=== PATIENT | female | born 1975 | race Caucasian/White ===

== ENCOUNTER → 2018-05-21 | Outpatient (CLI) | payer OTHER ==
[~2018-05-21] MED LIST: FLONASE 0.05%50 MCG; MAXALT MLT5 MG; MEDROLDOSEPACK PO; NORCO 5-325 TA1 EACH PO; OMEPRAZOLE MAGN20 MG; ROBAXIN 750 MG750 M1; ROBAXIN 750 MG750 M1 PO; XYZAL5 MG; ZANAFLEX4 MG PO; ZOFRAN ODT4 MG PO
== END ==
LOC: M.RAD 15:51
DX: M50.323 Other cervical disc degeneration at C6-C7 level (principal); M54.6 Pain in thoracic spine; M25.511 Pain in right shoulder; G89.29 Other chronic pain

== ENCOUNTER 2018-05-27 19:14 | Emergency (ER) | payer OTHER ==
[~2018-05-27] VITALS: Ht 182.9 cm; Wt 99.8 kg
[2018-05-27] MEDS ORDERED: ROBAXIN 750 MG750 M1 (19:22)
[2018-05-27] MEDS ORDERED: OMEPRAZOLE MAGN20 MG (19:22)
[2018-05-27] MEDS ORDERED: FLONASE 0.05%50 MCG (19:22)
[2018-05-27] MEDS ORDERED: MAXALT MLT5 MG (19:23)
[2018-05-27] MEDS ORDERED: XYZAL5 MG (19:23)
[2018-05-27] MEDS ORDERED: MEDROLDOSEPACK PO (19:50)
[2018-05-27] MEDS ORDERED: ROBAXIN 750 MG750 M1 PO (19:50)
[2018-05-27] MEDS ORDERED: NORCO 5-325 TA1 EACH PO (19:50)
[2018-05-27 20:17] VITALS: BP 122/83
== END 2018-05-27 20:18 | disposition home or self-care (01) ==
LOC: M.ERS 19:14
DX: S46.811A Strain of other muscles, fascia and tendons at shoulder and upper arm level, right arm, initial encounter (principal); X58.XXXA Exposure to other specified factors, initial encounter; Y93.89 Activity, other specified; Y92.89 Other specified places as the place of occurrence of the external cause; Y99.8 Other external cause status

== ENCOUNTER → 2018-06-06 | Outpatient (CLI) | payer OTHER | LOC: M.MRI 16:58 | DX: M47.22 Other spondylosis with radiculopathy, cervical region (principal); M50.123 Cervical disc disorder at C6-C7 level with radiculopathy; F10.99 Alcohol use, unspecified with unspecified alcohol-induced disorder ==

== ENCOUNTER 2018-09-17 10:57 | Emergency (ER) | payer OTHER ==
[~2018-09-17] VITALS: Ht 182.9 cm; Wt 104.3 kg
[~2018-09-17 10:57] MED LIST changes: -ZANAFLEX4 MG PO; -ZOFRAN ODT4 MG PO
[2018-09-17] MEDS ORDERED: ZANAFLEX4 MG PO (11:13)
[2018-09-17] MEDS ORDERED: ZOFRAN ODT4 MG PO (13:22)
[2018-09-17 13:32] VITALS: BP 127/77
== END 2018-09-17 13:33 | disposition home or self-care (01) ==
LOC: M.ERS 10:57
DX: R51 Headache (principal); R11.2 Nausea with vomiting, unspecified

== ENCOUNTER → 2019-06-24 | Outpatient (CLI) | payer OTHER ==
[~2019-06-24] MED LIST changes: +ZANAFLEX4 MG PO; +ZOFRAN ODT4 MG PO
--- NOTE | 2019-06-25 11:12 | 2DMMODE ---
[place] [address] 2 D/M-MODE ECHOCARDIOGRAM Name: THAD KAUR Room: [facility]#: [id number] Admission: 06/24/19 Attend Phys: Navneet Andersen Discharge: Date of : 79 Date of Service: 06/25/19 1112 Report #: [id number] THIS REPORT FOR: //name// APPROVED REPORT Study performed: 06/24/2019 13:40:08 EXAM: Comprehensive 2D, Doppler, and color-flow Echocardiogram Patient Location: Out-Patient BSA: 2.28 HR: 78 bpm BP: 145/95 mmHg Rhythm: NSR Other Information Study Quality: Good Indications EDEMA 2D Dimensions IVSd: 10.31 (7-11mm) LVOT Diam: 20.32 (18-24mm) LVDd: 44.64 mm PWd: 9.59 (7-11mm) Ascending Ao: 31.01 (22-36mm) LVDs: 25.68 (25-40mm) Aortic Root: 31.36 mm Volumes Left Atrial Volume (Systole) LA ESV Index: 21.90 mL/m2 Aortic Valve AoV Peak Santy.: 1.30 m/s AO Peak Gr.: 6.71 mmHg LVOT Max P.75 mmHg AO Mean Gr.: 4.08 mmHg LVOT Mean P.82 mmHg LVOT Max V: 0.97 m/s AO V2 VTI: 26.19 cm LVOT Mean V: 0.62 m/s ARSLAN (VTI): 2.40 cm2 LVOT V1 VTI: 19.36 cm Mitral Valve E/A Ratio: 1.40 MV Decel. Time: 155.40 ms MV E Max Santy.: 0.77 m/s MV PHT: 45.06 [place] [address] 2 D/M-MODE ECHOCARDIOGRAM Name: VINCENTTHAD JOYE Room: [facility]#: [id number] Admission: 06/24/19 Attend Phys: Navneet Andersen Discharge: Date of : 79 Date of Service: 06/25/19 1112 Report #: [id number] MVA (PHT): 4.88 cm2 TDI E/Lateral E': 5.92 E/Medial E': 5.92 Medial E' Santy.: 0.13 m/s Lateral E' Santy.: 0.13 m/s Pulmonary Valve PV Peak Santy.: 0.97 m/s PV Peak Gr.: 3.80 mmHg Tricuspid Valve RAP Estimate: 5.00 mmHg TR Peak Gr.: 21.48 mmHg RVSP: 26.00 mmHg PA Pressure: 26.00 mmHg Left Ventricle The left ventricle is normal size. There is normal LV segmental wall motion. There is normal left ventricular wall thickness. Left ventricular systolic function is normal. The left ventricular ejection fraction is within the normal range. LVEF is 60-65%. The left ventricular diastolic function is normal. Right Ventricle The right ventricle is normal size. The right ventricular systolic function is normal. Atria The left atrium size is normal. The right atrium size is normal. Aortic Valve The aortic valve is normal in structure. No aortic regurgitation is present. There is no aortic valvular stenosis. Mitral Valve The mitral valve is normal in structure. There is no mitral valve regurgitation noted. No evidence of mitral valve stenosis. Tricuspid Valve The tricuspid valve is normal in structure. Trace tricuspid regurgitation. No pulmonary hypertension. Pulmonic Valve The pulmonary valve is normal in structure. [place] [address] 2 D/M-MODE ECHOCARDIOGRAM Name: THAD KAUR Room: [facility]#: [id number] Admission: 06/24/19 Attend Phys: Navneet Andersen Discharge: Date of : 79 Date of Service: 06/25/19 1112 Report #: [id number] Great Vessels The aortic root is normal in size. IVC is not well visualized. Pericardium There is no pericardial effusion. <Conclusion> Left ventricular systolic function is normal. The left ventricular ejection fraction is within the normal range. <ELECTRONICALLY SIGNED> By: Anthony Villaseñor MD, [facility] 06/25/19 111 11 11 Anthony Villaseñor MD, [facility] /INF
== END ==
LOC: M.CRD 13:33
DX: R60.0 Localized edema (principal)